=== PATIENT | female | born 1990 | race African-American/Black ===

== ENCOUNTER 2018-10-26 23:14 | Emergency (ER) | payer MEDICAID ==
[~2018-10-26] VITALS: Ht 160 cm; Wt 88.2 kg
[2018-10-26] MEDS ORDERED: METOCLOPRAMIDE HCL 5 MG/ML 2 ML VIAL IM ONE (23:45)
[2018-10-26] MEDS ORDERED: DiphenhydrAMINE HCL 50 MG/ML VIAL IM ONE (23:45)
[2018-10-26] MEDS ORDERED: KETOROLAC TROMETHAMINE 30 MG/ML VIAL IM ONE (23:45)
[2018-10-27 01:00] VITALS: BP 122/75
== END 2018-10-27 01:38 | disposition home or self-care (01) ==
LOC: EMS 23:15
DX: G43.909 Migraine, unspecified, not intractable, without status migrainosus (principal); Z88.6 Allergy status to analgesic agent
CPT/HCPCS: 70450; 96372; 99284; J1200; J1885; J2765